=== PATIENT | female | born 1940 | race Caucasian/White ===

== ENCOUNTER → 2016-04-14 | Outpatient (CLI) | payer MEDICARE | END | disposition home or self-care (01) | LOC: NC 15:41 | PROVIDERS: ATTEND Family Medicine | DX: E11.9 Type 2 diabetes mellitus without complications (principal) ==

== ENCOUNTER → 2016-07-11 | Outpatient (CLI) | payer MEDICARE | END | disposition home or self-care (01) | LOC: NC 16:08 | DX: E11.9 Type 2 diabetes mellitus without complications (principal); I11.9 Hypertensive heart disease without heart failure; R30.0 Dysuria ==

== ENCOUNTER 2016-09-01 20:12 | Emergency (ER) | payer MEDICARE ==
[2016-09-01 20:32] VITALS: O2SAT 95
--- NOTE | 2016-09-01 20:58 | RAD ---
EXAM DESCRIPTION: Toes,Left CLINICAL HISTORY: 75 years ,Female possibly ran into something, or dropped something COMPARISON: None. TECHNIQUE: LEFT toes, Three view FINDINGS: No acute fractures or dislocations are identified. No osseous destructive lesions. Mild narrowing of the interphalangeal joint spaces IMPRESSION: No acute fractures are identified. If symptoms persist, followup is recommended in 7-10 days. Electronically signed by: Shana Oliveira 09/01/2016 8:57 PM CDT
--- NOTE | 2016-09-01 21:19 | ED.PDOC ---
History of Present Illness - General Chief Complaint: Lower Extremity Injury Stated Complaint: left toe injury, rash to rt calf Time Seen by Provider: 09/01/16 21:15 Source: patient, family Exam Limitations: no limitations - History of Present Illness Initial Comments: Patient presents with a painful left great toe and multiple small excoriations over her entire body as well as a large area of erythema and excoriations on the posterior right lower leg. The daughter says that the patient does not like water and they can only give her a bath about once every two weeks. Denies any insects, fleas or otherwise, in the house. No close contacts with similar symptoms. The daughter is unsure when the patient stubbed her left great toe. No other complaints. Timing/Duration: unsure Severity: moderate Improving Factors: nothing Worsening Factors: nothing Associated Symptoms: denies symptoms Allergies/Adverse Reactions: Allergies NO KNOWN ALLERGY Allergy (Verified 07/25/15 16:33) Home Medications: Ambulatory Orders Aspirin (Enteric Coated) 81 mg PO DAILY 07/06/12 Glipizide 10 mg PO BID 07/06/12 Lisinopril 40 mg PO BID 07/06/12 Pravastatin Sodium [Pravachol] 40 mg PO DAILY 07/06/12 Meloxicam 7.5 mg PO BEDTIME 08/23/13 Hydrochlorothiazide 25 mg PO DAILY 10/26/13 amLODIPine BESYLATE [Norvasc] 5 mg PO DAILY 10/26/13 Zolpidem Tartrate [Ambien] 5 mg PO BEDTIME 07/25/15 Cephalexin Monohydrate [Keflex] 500 mg PO Q6HR #60 cap 09/01/16 Fluconazole [Diflucan] 100 mg PO BEDTIME 09/01/16 Metformin HCl 1,000 mg PO BID 09/01/16 Nystatin (Topical) [Nystatin] 100,000 unit EX PRN 09/01/16 Quetiapine Fumarate [Seroquel Xr] 100 mg PO BEDTIME 09/01/16 Review of Systems - Review of Systems Constitutional: States: no symptoms reported EENTM: States: no symptoms reported Respiratory: States: no symptoms reported Cardiology: States: no symptoms reported Gastrointestinal/Abdominal: States: no symptoms reported Genitourinary: States: no symptoms reported Musculoskeletal: States: no symptoms reported Skin: States: see HPI Neurological: States: no symptoms reported Endocrine: States: no symptoms reported Hematologic/Lymphatic: States: no symptoms reported Past Medical History (General) - Patient Medical History Hx Seizures: No Hx Stroke: No Hx Dementia: Yes Hx Asthma: Yes Hx of COPD: No Hx Cardiac Disorders: No Hx Congestive Heart Failure: No Hx Pacemaker: No Hx Hypertension: Yes Hx Thyroid Disease: No Hx Diabetes: Yes Hx Gastroesophageal Reflux: Yes Hx Renal Disease: No Hx Cancer: No Hx Hepatitis C: No Hx MRSA: No Surgical History: Hysterectomy - Vaccination History Hx Tetanus, Diphtheria Vaccination: No Hx Influenza Vaccination: Yes Hx Pneumococcal Vaccination: Yes - Social History Hx Tobacco Use: Yes Hx Chewing Tobacco Use: No Hx Alcohol Use: No Hx Substance Use: No Hx Substance Use Treatment: No Hx Depression: No Hx Physical Abuse: No Hx Emotional Abuse: No Hx Suspected Abuse: No - Female History Patient : No Family Medical History - Family History Mother Family History: No Known Living Status: Brother Living Status: Still Living Hx Family Diabetes: Yes Sister Living Status: Still Living Hx Family Diabetes: Yes Physical Exam - Physical Exam General Appearance: Alert Respiratory: lungs clear Cardiovascular/Chest: regular rate, rhythm Gastrointestinal/Abdominal: normal bowel sounds, non tender, soft Extremity: other - left great toe is mildly tender over the toenail. There is yellow thick exudate under the toenail. Skin Exam: rash - diffuse areas of excoriations with large patch of erythema and excoriations on the posterior lower right leg. It is non-blanching and warm. Progress - Progress Progress: 09/01/16 21:21 Radiographs of the left foot show no fractures. The rashes and excorations behind the right lower leg appear to be becoming infected. Will treat with keflex and refer to podiatry for further evaluation and treatment of the left great toenail. 09/01/16 21:47 Patient given Keflex 500 mg po x one in the ER and provided with contact information for podiatry for treatment of the left great toenail. Departure - Departure Clinical Impression: Infected open wound Disposition: Discharge to Home or Self Care Condition: Good Departure Forms: ED Discharge - Pt. Copy, Patient Portal Self Enrollment Diet: resume usual diet Activity: increase activity as tolerated Referrals: Carola Delacruz NP [Primary Care Provider] - 1-2 Weeks Prescriptions: Cephalexin Monohydrate [Keflex] 500 mg PO Q6HR #60 cap Home Medications: Ambulatory Orders Aspirin (Enteric Coated) 81 mg PO DAILY 07/06/12 Glipizide 10 mg PO BID 07/06/12 Lisinopril 40 mg PO BID 07/06/12 Pravastatin Sodium [Pravachol] 40 mg PO DAILY 07/06/12 Meloxicam 7.5 mg PO BEDTIME 08/23/13 Hydrochlorothiazide 25 mg PO DAILY 10/26/13 amLODIPine BESYLATE [Norvasc] 5 mg PO DAILY 10/26/13 Zolpidem Tartrate [Ambien] 5 mg PO BEDTIME 07/25/15 Cephalexin Monohydrate [Keflex] 500 mg PO Q6HR #60 cap 09/01/16 Fluconazole [Diflucan] 100 mg PO BEDTIME 09/01/16 Metformin HCl 1,000 mg PO BID 09/01/16 Nystatin (Topical) [Nystatin] 100,000 unit EX PRN 09/01/16 Quetiapine Fumarate [Seroquel Xr] 100 mg PO BEDTIME 09/01/16 Additional Instructions: Take medication as prescribed. Call facilities manager in the morning and get the soonest possible appointment regarding the left big toe nail.
[2016-09-01] MEDS ORDERED: CEPHALEXIN MONOHYDRATE 500 MG CAP PO ONE (21:45)
[2016-09-01 22:08] VITALS: BP 132/78; TEMP 98
== END 2016-09-01 22:08 | disposition home or self-care (01) ==
LOC: ER 20:12
DX: L08.9 Local infection of the skin and subcutaneous tissue, unspecified (principal); J45.909 Unspecified asthma, uncomplicated; F03.90 Unspecified dementia, unspecified severity, without behavioral disturbance, psychotic disturbance, mood disturbance, and anxiety; I10 Essential (primary) hypertension; E11.9 Type 2 diabetes mellitus without complications; K21.9 Gastro-esophageal reflux disease without esophagitis; Z79.82 Long term (current) use of aspirin; Z79.899 Other long term (current) drug therapy; Z87.891 Personal history of nicotine dependence

== ENCOUNTER 2016-09-29 10:49 | Emergency (ER) | payer MEDICARE ==
--- NOTE | 2016-09-29 11:06 | ED.PDOC ---
History of Present Illness - General Chief Complaint: Trauma Stated Complaint: fall Time Seen by Provider: 09/29/16 11:00 Source: patient, EMS notes reviewed Exam Limitations: no limitations - History of Present Illness Initial Comments: Mildred Coffman 76 y/o female stated as she was going to her bed last night she slipped and fell and unable to get up from the floor family members living nearby visted her this am and found her laying down the floor.Called up ems .She was found to be awake and talking on ems arrival.Stated pain on her buttocks.She has dementia also taking ambien and seroquel at hs Timing/Duration: other - 12 hours Severity: moderate Improving Factors: rest Worsening Factors: movement Associated Symptoms: denies symptoms Allergies/Adverse Reactions: Allergies NO KNOWN ALLERGY Allergy (Verified 07/25/15 16:33) Home Medications: Ambulatory Orders Aspirin (Enteric Coated) 81 mg PO DAILY 07/06/12 Glipizide 10 mg PO BID 07/06/12 Lisinopril 40 mg PO BID 07/06/12 Pravastatin Sodium [Pravachol] 40 mg PO DAILY 07/06/12 Meloxicam 7.5 mg PO BEDTIME 08/23/13 Hydrochlorothiazide 25 mg PO DAILY 10/26/13 amLODIPine BESYLATE [Norvasc] 5 mg PO DAILY 10/26/13 Zolpidem Tartrate [Ambien] 5 mg PO BEDTIME 07/25/15 Fluconazole [Diflucan] 100 mg PO BEDTIME 09/01/16 Metformin HCl 1,000 mg PO BID 09/01/16 Nystatin (Topical) [Nystatin] 100,000 unit EX PRN 09/01/16 Quetiapine Fumarate [Seroquel Xr] 100 mg PO BEDTIME 09/01/16 Review of Systems - Review of Systems Constitutional: States: no symptoms reported EENTM: States: no symptoms reported Respiratory: States: no symptoms reported Cardiology: States: no symptoms reported Gastrointestinal/Abdominal: States: no symptoms reported Genitourinary: States: no symptoms reported Musculoskeletal: States: see HPI Skin: States: no symptoms reported Neurological: States: no symptoms reported Hematologic/Lymphatic: States: no symptoms reported Past Medical History (General) - Patient Medical History Hx Seizures: No Hx Stroke: No Hx Dementia: Yes Hx Asthma: Yes Hx of COPD: No Hx Cardiac Disorders: No Hx Congestive Heart Failure: No Hx Pacemaker: No Hx Hypertension: Yes Hx Thyroid Disease: No Hx Diabetes: Yes Hx Gastroesophageal Reflux: Yes Hx Renal Disease: No Hx Cancer: No Hx Hepatitis C: No Hx MRSA: No Surgical History: no surgical history - Vaccination History Hx Tetanus, Diphtheria Vaccination: No Hx Influenza Vaccination: Yes Hx Pneumococcal Vaccination: Yes - Social History Hx Tobacco Use: Yes Hx Chewing Tobacco Use: No Hx Alcohol Use: No Hx Substance Use: No Hx Substance Use Treatment: No Hx Depression: No Hx Physical Abuse: No Hx Emotional Abuse: No Hx Suspected Abuse: No - Activities of Daily Living Patient Lives Alone: No - family members lives across to her house daughter stays with her but on vac Grooming Ability: Independent Eating (Feeding) Ability: Independent Toileting Ability: Independent - Female History Patient is a Female of Child Bearing Age (10 -59 yrs old): No Patient : No Family Medical History - Family History Mother Family History: No Known Living Status: Brother Living Status: Still Living Hx Family Diabetes: Yes Sister Living Status: Still Living Hx Family Diabetes: Yes Physical Exam - Physical Exam General Appearance: Alert, Comfortable, No apparent distress Eye Exam: bilateral normal Ears, Nose, Throat: hearing grossly normal Neck: non-tender, full range of motion, supple Respiratory: chest non-tender, lungs clear, normal breath sounds Cardiovascular/Chest: normal peripheral pulses, regular rate, rhythm, no gallop , no murmur Peripheral Pulses: radial,right: 1+, radial,left: 1+ Gastrointestinal/Abdominal: normal bowel sounds, non tender, soft, no organomegaly Back Exam: normal inspection, no CVA tenderness, no vertebral tenderness Extremity: normal range of motion, non-tender, normal inspection, no pedal edema , no calf tenderness Neurologic: no motor/sensory deficits, alert, normal mood/affect, oriented x 3, other - pronator drift negative Skin Exam: normal color, warm/dry, rash - both legs Lymphatic: no adenopathy Progress - Progress Progress: 09/29/16 12:19 Vital Signs - 8 hr 09/29/16 10:52 Temperature 97.6 F Pulse Rate [ 82 left brachial] Respiratory 16 Rate Blood Pressure 132/77 [left brachial] O2 Sat by Pulse 96 Oximetry Laboratory Tests 09/29/16 09/29/16 11:28 11:55 WBC 6.6 RBC 3.92 L Hgb 11.1 L Hct 34.3 L MCV 87.6 MCH 28.3 MCHC 32.3 L RDW 13.9 Plt Count 168 MPV 10.6 H Absolute Neuts (auto) 3.70 Absolute Lymphs (auto) 1.80 Absolute Monos (auto) 0.50 Absolute Eos (auto) 0.40 Absolute Basos (auto) 0.10 Neutrophils % 56.9 Lymphocytes % 27.5 Monocytes % 8.1 Eosinophils % 6.3 H Basophils % 1.2 PT 11.2 INR 0.990 PTT (SP) 28.2 Sodium 143 Potassium 3.4 L Chloride 110 Carbon Dioxide 26 Anion Gap 10.4 L BUN 18 Creatinine 1.01 BUN/Creatinine Ratio 17.8 Random Glucose 91 Serum Osmolality 286.5 Calcium 8.9 Magnesium 1.7 L Total Bilirubin 0.4 Direct Bilirubin < 0.1 Indirect Bilirubin 0.3 AST 18 ALT 17 Alkaline Phosphatase 80 Creatine Kinase 56 Troponin I < 0.02 Serum Total Protein 7.2 Albumin 3.2 Urine Color Yellow Urine Appearance Clear Urine pH 5.5 Ur Specific [place] 1.020 Urine Protein Negative Urine Glucose (UA) Negative Urine Ketones Negative Urine Blood Negative Urine Nitrite Negative Urine Bilirubin Negative Urine Urobilinogen 0.2 Ur Leukocyte Esterase Negative Urine RBC 0-1 Urine WBC 0-1 Ur Epithelial Cells 20-30 Urine Bacteria 0 - EKG/XRAY/CT EKG: Sinus, no ST T wave changes Comments: heart rate-73 XRAY: hip - no fracture degenerative changes Departure - Departure Clinical Impression: Pain in pelvis Fall at home Qualifiers: Encounter type: initial encounter Qualified Code(s): W19.XXXA - Unspecified fall, initial encounter Time of Disposition: 12:25 Disposition: Discharge to Home or Self Care Condition: Fair Departure Forms: ED Discharge - Pt. Copy, Patient Portal Self Enrollment Instructions: How to Prevent Falls Referrals: Carola Delacruz NP [Primary Care Provider] - 1-2 Weeks Home Medications: Ambulatory Orders Aspirin (Enteric Coated) 81 mg PO DAILY 07/06/12 Glipizide 10 mg PO BID 07/06/12 Lisinopril 40 mg PO BID 07/06/12 Pravastatin Sodium [Pravachol] 40 mg PO DAILY 07/06/12 Meloxicam 7.5 mg PO BEDTIME 08/23/13 Hydrochlorothiazide 25 mg PO DAILY 10/26/13 amLODIPine BESYLATE [Norvasc] 5 mg PO DAILY 10/26/13 Zolpidem Tartrate [Ambien] 5 mg PO BEDTIME 07/25/15 Fluconazole [Diflucan] 100 mg PO BEDTIME 09/01/16 Metformin HCl 1,000 mg PO BID 09/01/16 Nystatin (Topical) [Nystatin] 100,000 unit EX PRN 09/01/16 Quetiapine Fumarate [Seroquel Xr] 100 mg PO BEDTIME 09/01/16 Additional Instructions: Follow up with primary md for evaluation of sleeping medicne due to frequent falling at home
[2016-09-29] MEDS: SODIUM CHLORIDE 0.9% 1000ML 1,000 ML IVS ONE (11:19)
[2016-09-29 11:28] VITALS: TEMP 97.6
--- NOTE | 2016-09-29 11:41 | RAD ---
Frontal view pelvis. Two-view right hip. Two-view left hip. Indication: fall Comparison: None. IMPRESSION: Examination limited due to poor penetration related to body habitus as well as osteopenia. Given this limitation, no discrete acute fracture of the hips or pelvis identified. If there is high clinical concern for fracture, correlation with MRI or CT recommended. 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 Electronically signed by: Dandre Ramon MD 09/29/2016 11:40 AM CDT
[2016-09-29 12:57] VITALS: BP 111/74; O2SAT 96
== END 2016-09-29 12:57 | disposition home or self-care (01) ==
LOC: ER 10:49
DX: R10.2 Pelvic and perineal pain (principal); J45.909 Unspecified asthma, uncomplicated; I10 Essential (primary) hypertension; E11.9 Type 2 diabetes mellitus without complications; K21.9 Gastro-esophageal reflux disease without esophagitis; F03.90 Unspecified dementia, unspecified severity, without behavioral disturbance, psychotic disturbance, mood disturbance, and anxiety; Z79.82 Long term (current) use of aspirin; Z79.899 Other long term (current) drug therapy; Z87.891 Personal history of nicotine dependence; W01.0XXA Fall on same level from slipping, tripping and stumbling without subsequent striking against object, initial encounter; Z91.81 History of falling; Y92.003 Bedroom of unspecified non-institutional (private) residence as the place of occurrence of the external cause
CPT/HCPCS: 36415; 72190; 73502; 80048; 80076; 81001; 82550; 82553; 84484; 85025; 85610; 85730; 93005; J7030

== ENCOUNTER → 2017-01-27 | Outpatient (CLI) | payer MEDICARE | END | disposition home or self-care (01) | LOC: NC 17:25 | DX: E11.22 Type 2 diabetes mellitus with diabetic chronic kidney disease (principal); I12.9 Hypertensive chronic kidney disease with stage 1 through stage 4 chronic kidney disease, or unspecified chronic kidney disease; N18.9 Chronic kidney disease, unspecified; R30.0 Dysuria ==

== ENCOUNTER 2017-03-27 16:29 | Inpatient (IN) | payer MEDICARE ==
[2017-03-27] MEDS ORDERED: SODIUM CHLORIDE 0.9% 500ML 500 ML IVS ONE (16:51)
--- NOTE | 2017-03-27 16:54 | ED.PDOC ---
History of Present Illness - General Chief Complaint: Trauma Stated Complaint: fall, leg pain Time Seen by Provider: 03/27/17 16:49 Source: RN notes reviewed, Vital Signs reviewed, other - Home Health Exam Limitations: clinical condition - pt has confusion - History of Present Illness Timing/Duration: other - two days, found on floor by family in morning, no weight-bearing on L leg Improving Factors: immobilization Worsening Factors: movement Associated Symptoms: cough, weakness Allergies/Adverse Reactions: Allergies NO KNOWN ALLERGY Allergy (Verified 03/27/17 16:44) Home Medications: Ambulatory Orders Aspirin (Enteric Coated) 81 mg PO DAILY 07/06/12 Glipizide 10 mg PO BID 07/06/12 Lisinopril 40 mg PO BID 07/06/12 Pravastatin Sodium [Pravachol] 40 mg PO DAILY 07/06/12 Meloxicam 7.5 mg PO BEDTIME 08/23/13 Hydrochlorothiazide 25 mg PO DAILY 10/26/13 amLODIPine BESYLATE [Norvasc] 5 mg PO DAILY 10/26/13 Zolpidem Tartrate [Ambien] 5 mg PO BEDTIME 07/25/15 Fluconazole [Diflucan] 100 mg PO BEDTIME 09/01/16 Metformin HCl 1,000 mg PO BID 09/01/16 Nystatin (Topical) [Nystatin] 100,000 unit EX PRN 09/01/16 Quetiapine Fumarate [Seroquel Xr] 100 mg PO BEDTIME 09/01/16 Review of Systems - Review of Systems Unable to Obtain Due To: dementia Past Medical History (General) - Patient Medical History Hx Seizures: No Hx Stroke: No Hx Dementia: Yes Hx Asthma: Yes Hx of COPD: No Hx Cardiac Disorders: No Hx Congestive Heart Failure: No Hx Pacemaker: No Hx Hypertension: Yes Hx Thyroid Disease: No Hx Diabetes: Yes Hx Gastroesophageal Reflux: Yes Hx Renal Disease: No Hx Cancer: No Hx Hepatitis C: No Hx MRSA: No - Vaccination History Hx Tetanus, Diphtheria Vaccination: No Hx Influenza Vaccination: Yes Hx Pneumococcal Vaccination: Yes - Social History Hx Tobacco Use: Yes Hx Chewing Tobacco Use: No Hx Alcohol Use: No Hx Substance Use: No Hx Substance Use Treatment: No Hx Depression: No Hx Physical Abuse: No Hx Emotional Abuse: No Hx Suspected Abuse: No - Female History Patient : No Family Medical History - Family History Mother Family History: No Known Living Status: Brother Living Status: Still Living Hx Family Diabetes: Yes Sister Living Status: Still Living Hx Family Diabetes: Yes Physical Exam - Physical Exam General Appearance: Alert, Obvious distress - wih L leg movement Eye Exam: bilateral normal Ears, Nose, Throat: hearing grossly normal, other - oral mucosa slightly dry Neck: non-tender Respiratory: lungs clear, normal breath sounds, no respiratory distress Cardiovascular/Chest: regular rate, rhythm, no edema Peripheral Pulses: dorsalis pedis,right: 0, dorsalis pedis,left: 0, posterior tibialis,right: 0, posterior tibialis,left: 0 Gastrointestinal/Abdominal: normal bowel sounds, soft, tenderness - mild, diffuse Neurologic: alert, disoriented x 3 Skin Exam: warm/dry, other - L foot slightly cool to touch, no cyanosis or edema Departure - Departure Clinical Impression: Weakness UTI (urinary tract infection) Qualifiers: Urinary tract infection type: acute cystitis Hematuria presence: without hematuria Qualified Code(s): N30.00 - Acute cystitis without hematuria Dementia Qualifiers: Dementia type: unspecified type Contusion, hip and thigh Qualifiers: Laterality: left Disposition: Admit Patient Departure Forms: ED Discharge - Pt. Copy, Patient Portal Self Enrollment Instructions: DI for Trauma Referrals: Carola Delacruz NP [Nurse Practitioner] - 1-2 Weeks Home Medications: Ambulatory Orders Aspirin (Enteric Coated) 81 mg PO DAILY 07/06/12 Glipizide 10 mg PO BID 07/06/12 Lisinopril 40 mg PO BID 07/06/12 Pravastatin Sodium [Pravachol] 40 mg PO DAILY 07/06/12 Meloxicam 7.5 mg PO BEDTIME 08/23/13 Hydrochlorothiazide 25 mg PO DAILY 10/26/13 amLODIPine BESYLATE [Norvasc] 5 mg PO DAILY 10/26/13 Zolpidem Tartrate [Ambien] 5 mg PO BEDTIME 07/25/15 Fluconazole [Diflucan] 100 mg PO BEDTIME 09/01/16 Metformin HCl 1,000 mg PO BID 09/01/16 Nystatin (Topical) [Nystatin] 100,000 unit EX PRN 09/01/16 Quetiapine Fumarate [Seroquel Xr] 100 mg PO BEDTIME 09/01/16 Decision To Admit - Decistion To Admit Decision to Admit Reason: Medical Nature - weakness from UTI and risk of falling Decision to Admit Date: 03/27/17
--- NOTE | 2017-03-27 18:03 | RAD ---
EXAM DESCRIPTION: Chest,1 View CLINICAL HISTORY: 76 years Female, cough, weakness COMPARISON: March 16, 2014 TECHNIQUE: AP portable chest. FINDINGS: A single view of the chest is compared to remote prior study. On the right no specific abnormality is noted. On the left there is a questionable 1 cm nodule in the suprahilar region overlying the anterior left second rib. When able a standard departmental PA and lateral upright view of the chest is recommended for reevaluation prior to any further workup. Heart size is borderline enlarged with a calcified tortuous aorta. No hilar enlargement or dense consolidation or definite acute infiltrate noted. IMPRESSION: 1. Questionable small nodule left upper lung field, approximately 1 cm in diameter. Follow-up standard departmental upright deep inspiration PA and lateral view of the chest for initial further evaluation recommended. A small pulmonary lesion cannot be completely excluded. 2. No acute consolidation or inflammatory process is seen. Electronically signed by: Ramiro Lynn MD 03/27/2017 6:03 PM HEMODIALYSIS TECHNICIAN
--- NOTE | 2017-03-27 18:04 | RAD ---
EXAM DESCRIPTION: Knee,Left 2 or More Views CLINICAL HISTORY: 76 years, Female, pain after fall COMPARISON: None TECHNIQUE: Two views of the left knee FINDINGS: Advanced degenerative changes involving the left knee with modest osteopenia is present without significant joint effusion. Changes are most significant in the medial joint compartment with joint space narrowing and mild sclerosis. Milder patellofemoral and lateral compartment arthritic changes noted. No fractures or dislocations noted. IMPRESSION: 1. Moderate degenerative joint disease particularly in the medial joint compartment. No acute injury seen Electronically signed by: Ramiro Lynn MD 03/27/2017 6:04 PM [facility]
--- NOTE | 2017-03-27 18:06 | RAD ---
EXAM DESCRIPTION: Pelvis CLINICAL HISTORY: 76 years Female, L hip pain COMPARISON: September 29, 2016 FINDINGS: Bony pelvis is intact. A distinct abnormality involving the left side of the pelvis on the left hip on this single view is not apparent. No obvious fracture or dislocation is seen. No soft tissue masses noted. IMPRESSION: Negative pelvis one view with mild degenerative changes. Electronically signed by: Ramiro Lynn MD 03/27/2017 6:[address] REPORTER
[2017-03-27] MEDS ORDERED: cefTRIAXone SODIUM 1 GM in SODIUM CHL 0.9% 50ML MIN-BAG+ 50 ML IVPB ONE (18:19)
[2017-03-27] MEDS ORDERED: cefTRIAXone SODIUM 1 GM VIAL ONE (18:40)
[2017-03-27] MEDS ORDERED: SODIUM CHL 0.9% 50ML MIN-BAG+ 50 ML IVPB ONE (18:40)
--- NOTE | 2017-03-27 20:24 | HP ---
SUPERVISING PHYSICIAN: HEMA CHAPPELL MD CHIEF COMPLAINT: Fall and altered mental status. HISTORY OF PRESENT ILLNESS: This is a 76 year-old female patient who has had 4+ days of weakness and she has stumbled several times at home. She lives with her granddaughter and her . Her home health nurse from [facility] was there today and she stumbled onto the floor and would not move her left side. She was brought to the Emergency Room due to her confusional state as well as she was unable to walk. She has also had several days of congestion, she goes to Audrey Smith NP, at [facility] and was recently treated for a urinary tract infection that her cultures showed Escherichia Coli and was hall-sensitive to antibiotics. She completed a round of Macrobid and has just recently finished it and according to the granddaughter within a day or so after completion of the Macrobid she was having increasing confusion with altered mentation and became very weak. In the Emergency Room, a left pelvic x-ray was done and per radiology interpretation shows negative pelvis, one-view, with mild degenerative changes. A left knee x-ray was also obtained and per radiology interpretation shows moderate degenerative joint disease particularly in the medial joint compartment , no acute injury seen. Laboratory studies reveal WBC of 8.1 with hemoglobin of 12 and hematocrit of 36.4. Neutrophil was 73.3. Chemistries show sodium of 137, potassium 3.2, chloride 102, carbon dioxide 25, BUN 35, creatinine 1.51 in a patient whose baseline creatinine is 0.8. Blood sugar was 267, AST 66, ALT 37, alkaline phosphatase 86, albumin 2.8, and globulin 4.4. Urinalysis was positive for a urinary tract infection with 15 urine ketones, moderate urine blood, small urine bilirubin, small urine leukocyte esterase, 20 to 30 urine WBCs and 4+ urine bacteria. Urine cultures were completed. She also has had complaints of a subjective fever, her temperature was 99.4 in the Emergency Room and her influenza swabs A&B by PCR were both negative. Vital signs showed her heart rate was as high as 101 with a blood pressure of 106/71, respiratory rate 20, 02 saturation 95% on room air. I was called for admission to the hospital. PAST MEDICAL HISTORY: 1. History of diabetes mellitus type 2. 2. Hypertension. 3. Hyperlipidemia. 4. Chronic dementia. 5. History of TIAs. 6. Chronic headaches. PAST SURGICAL HISTORY: 1. Hysterectomy with bilateral oophorectomy. 2. Gallbladder surgery. CURRENT MEDICATIONS: Per the EMR and awaiting verification. ALLERGIES: NO KNOWN DRUG ALLERGIES. FAMILY HISTORY: Positive for cancer, diabetes and high blood pressure. SOCIAL HISTORY: She smokes in the past but quit 20+ years ago. She lives with her granddaughter and her . She denies any ETOH or illicit drug use. REVIEW OF SYSTEMS: Unable to obtain due to patient's reduced mentation. PHYSICAL EXAMINATION: VITAL SIGNS: Temperature 98.7, pulse rate 90, blood pressure 140/76, respiratory rate 20, 02 saturation 95%. GENERAL: This is a 76 year-old obese female lying her hospital bed. She is in no acute distress. HEENT: Normocephalic and atraumatic. Pupils are equal and reactive. Oropharynx is clear. Oral mucous membranes are moist. RESPIRATORY: Essentially clear bilaterally. Chest has equal rise and fall in inspiration and expiration. CARDIOVASCULAR: Regular rate and rhythm. GASTROINTESTINAL: Abdomen is soft, non-tender and nondistended. Bowel sounds are positive. EXTREMITIES: No cyanosis, clubbing, or edema. There is some tenderness along the lateral portion of her left hip and left knee. There is no ecchymosis or erythema noted at this time. NEUROLOGICAL: She is awake and alert to person only, answers some simple yes and no questions appropriately. LABORATORY AND FILMS: As per the history of present illness. IMPRESSION: 1. Urinary tract infection, failed outpatient therapy. She was recently treated for a urinary tract infection with Macrobid with culture and sensitivity showing that Escherichia Coli with hall-sensitivity. 2. Acute renal failure in a patient with a normal creatinine of 0.8. 3. Mild upper respiratory illness with some mild congestion. 4. Altered mental status most likely secondary to #1. 5. Weakness. 6. Traumatic same level fall initially with no weightbearing and confusion. 7. Diabetes mellitus type 2. 8. Hypertension. 9. History of TIAs. PLAN: We will admit the patient to the hospital. I have continued her Ceftriaxone for her antibiotic therapy. I have added Mucinex for her congestion. Accu-Chek a.c. and h.s. with body scales for her diabetes. I have not restarted her home medications and I will do so as soon as they are verified. I will consult physical therapy for strengthening and conditioning. Given the recent history of her weakness as well as several falls, it may be beneficial for her to go SNF at discharge with physical therapy. Repeat labs in the morning. I will give a judicious amount of fluids to help with the knee injury. We will continue to follow the patient closely and followup as needed. Dr. Chappell is the collaborating physician and available for consultation. [facility][id number] [facility]
[2017-03-27] MEDS ORDERED: DEXTROSE 50% 25 GM/50 ML SYG IV PRN (21:27)
[2017-03-27] MEDS ORDERED: GLUCAGON INJ 1 MG VIAL SUBCU PRN (21:27)
[2017-03-27] MEDS ORDERED: cefTRIAXone SODIUM 1 GM in SODIUM CHL 0.9% 50ML MIN-BAG+ 50 ML IVPB SCH (21:30)
[2017-03-27] MEDS ORDERED: IV SET AND CAP CHANGE INJ INJ SCH (21:30)
[2017-03-27] MEDS ORDERED: PANTOPRAZOLE SODIUM IV 40 MG VIAL IV SCH (21:30)
[2017-03-27] MEDS ORDERED: ENOXAPARIN SODIUM 40 MG/0.4 ML SYG SUBCU SCH (21:30)
[2017-03-27] MEDS: guaiFENesin ER TAB 600 MG TAB PO SCH (22:47)
[2017-03-28] MEDS ORDERED: cefTRIAXone SODIUM 1 GM VIAL ONE ×2 (05:36→17:21)
[2017-03-28] MEDS ORDERED: SODIUM CHL 0.9% 50ML MIN-BAG+ 50 ML IVPB ONE ×2 (05:36→17:21)
[2017-03-28] MEDS: cefTRIAXone SODIUM 1 GM in SODIUM CHL 0.9% 50ML MIN-BAG+ 50 ML IVPB SCH ×2 (05:54→18:31)
[2017-03-28] MEDS: INSULIN LISPRO 100 UNITS/ML PEN SUBCU SCH ×4 (07:21→22:43)
[2017-03-28] MEDS: metFORMIN HCL 500 MG TAB PO SCH ×2 (10:40→17:36)
[2017-03-28] MEDS: amLODIPine BESYLATE 5 MG TAB PO SCH (10:40)
[2017-03-28] MEDS: LISINOPRIL 10 MG TAB PO SCH ×2 (10:40→21:18)
[2017-03-28] MEDS: guaiFENesin ER TAB 600 MG TAB PO SCH ×2 (10:40→21:17)
[2017-03-28] MEDS: hydroCHLOROthiazide 25 MG TAB PO SCH (10:40)
[2017-03-28] MEDS: metFORMIN XR 500 MG TAB.ER.24 PO SCH (17:20)
--- NOTE | 2017-03-28 17:35 | PN ---
DATE: 03/28/17 SUPERVISING PHYSICIAN: Demond Chappell M.D. SUBJECTIVE: The patient is resting in the bedside chair. She has no major complaints. Says she still feels weak and tired. She has had no shortness of breath, nausea or vomiting. OBJECTIVE: VITAL SIGNS: Temperature 96.8, pulse 94, blood pressure 122/76, respirations 18, satting 95% on room air. I's and O's are not well managed as the patient is incontinent. Weight is 105.1 kg. CHEST: Lungs were clear to auscultation bilaterally. HEART: Regular rate and rhythm. ABDOMEN: Obese but soft, non-tender with positive bowel sounds. EXTREMITIES: No clubbing, cyanosis or edema. There remains some tenderness along the left hip and left knee but no obvious ecchymotic areas. NEUROLOGIC: She is alert and awake, and is oriented times three. LABORATORY: White count remains normal at 7,300 with hemoglobin 11.3, hematocrit 34.5, platelet count 221,000. Differential shows to be without a left shift. Chemistries show just a mildly low potassium at 3.4, otherwise electrolytes are within normal limits. BUN 34, creatinine 1.31 which is improved from admission. Blood sugar is 150, magnesium 1.9. MICROBIOLOGY: Urine culture performed today shows gram-negative rods with sensitivity and identification pending. ASSESSMENT: 1. Urinary tract infection having failed to respond to outpatient treatment plan having recently been treated for Escherichia coli on Macrobid. 2. Altered mental status secondary to #1 showing some improvement with treatment. 3. Acute renal failure more likely prerenal azotemia with baseline creatinine being 0.8 showing some improvement. 4. Upper respiratory congestion with normal white count and being afebrile with a negative Influenza. 5. Weakness secondary to chronic illness. 6. Traumatic same level fall with some confusion felt to be secondary to underlying weakness and possible developing urinary tract infection showing improvement with treatment. 7. Diabetes mellitus type 2. 8. Hypertension. 9. History of previous transient ischemic attacks. PLAN: Will continue with Rocephin antibiotic coverage until we have final cultures back from the urine culture in the morning. She remains on Mucinex. Her blood sugar has been stable on sliding scale. Her home medications have been resumed. 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 She continues to be saline locked and has adequate oral intake. Will continue to hold the Glipizide in regards to her medication regimen. The Metformin has been reinitiated. Will anticipate at least another 24 to 48 hours hospitalization requirement for parenteral antibiotic coverage and further physical therapy assessment, and possible referral to SNF facility on Thursday. Until then, will continue to monitor and treat appropriately. #[id number] [facility]
[2017-03-28] MEDS ORDERED: QUEtiapine FUMARATE 100 MG TAB ONE (19:44)
[2017-03-28] MEDS: ENOXAPARIN SODIUM 40 MG/0.4 ML SYG SUBCU SCH (21:17)
[2017-03-28] MEDS: PANTOPRAZOLE SODIUM IV 40 MG VIAL IV SCH (21:18)
[2017-03-28] MEDS: QUETIAPINE FUMARATE 100 MG PO SCH (21:18)
[2017-03-28] MEDS: PRAVASTATIN SODIUM 20 MG TAB PO SCH (21:18)
[2017-03-28] MEDS: SODIUM CHLORIDE 0.9% (FLUSH) 10 ML SYG IV PRN (21:19)
[2017-03-29] MEDS ORDERED: SODIUM CHL 0.9% 50ML MIN-BAG+ 50 ML IVPB ONE ×3 (05:35→19:38)
[2017-03-29] MEDS ORDERED: cefTRIAXone SODIUM 1 GM VIAL ONE ×3 (05:36→19:39)
[2017-03-29] MEDS: cefTRIAXone SODIUM 1 GM in SODIUM CHL 0.9% 50ML MIN-BAG+ 50 ML IVPB SCH ×2 (05:59→18:22)
[2017-03-29] MEDS ORDERED: cefTRIAXone SODIUM 1 GM in SODIUM CHL 0.9% 50ML MIN-BAG+ 50 ML IVPB SCH (06:30)
[2017-03-29] MEDS: metFORMIN HCL 500 MG TAB PO SCH (08:16)
[2017-03-29] MEDS: INSULIN LISPRO 100 UNITS/ML PEN SUBCU SCH ×4 (08:16→21:03)
[2017-03-29] MEDS: LISINOPRIL 10 MG TAB PO SCH (08:17)
[2017-03-29] MEDS: metFORMIN XR 500 MG TAB.ER.24 PO SCH (08:37)
[2017-03-29] MEDS: hydroCHLOROthiazide 25 MG TAB PO SCH (09:43)
[2017-03-29] MEDS: guaiFENesin ER TAB 600 MG TAB PO SCH ×2 (09:43→20:41)
[2017-03-29] MEDS: amLODIPine BESYLATE 5 MG TAB PO SCH (09:43)
[2017-03-29] MEDS: ASPIRIN EC 81 MG TAB PO SCH (09:43)
[2017-03-29] MEDS ORDERED: metFORMIN HCL 500 MG TAB PO SCH (17:00)
[2017-03-29] MEDS ORDERED: QUEtiapine FUMARATE 100 MG TAB ONE (19:38)
[2017-03-29] MEDS: ENOXAPARIN SODIUM 40 MG/0.4 ML SYG SUBCU SCH (20:41)
[2017-03-29] MEDS: PANTOPRAZOLE SODIUM IV 40 MG VIAL IV SCH (20:41)
[2017-03-29] MEDS: SODIUM CHLORIDE 0.9% (FLUSH) 10 ML SYG IV PRN (20:41)
[2017-03-29] MEDS: PRAVASTATIN SODIUM 20 MG TAB PO SCH (20:41)
[2017-03-29] MEDS: QUETIAPINE FUMARATE 100 MG PO SCH (20:42)
[2017-03-30] MEDS: cefTRIAXone SODIUM 1 GM in SODIUM CHL 0.9% 50ML MIN-BAG+ 50 ML IVPB SCH (06:07)
[2017-03-30] MEDS ORDERED: metFORMIN HCL 500 MG TAB PO SCH (07:30)
[2017-03-30] MEDS: INSULIN LISPRO 100 UNITS/ML PEN SUBCU SCH ×2 (08:02→12:46)
[2017-03-30] MEDS: guaiFENesin ER TAB 600 MG TAB PO SCH (08:32)
[2017-03-30] MEDS: ASPIRIN EC 81 MG TAB PO SCH (08:32)
[2017-03-30] MEDS: hydroCHLOROthiazide 25 MG TAB PO SCH (08:32)
[2017-03-30] MEDS: amLODIPine BESYLATE 5 MG TAB PO SCH (08:32)
--- NOTE | 2017-03-30 08:53 | PN ---
DATE: 03/29/17 SUPERVISING PHYSICIAN: Demond Chappell MD SUBJECTIVE: The patient remains with a very flat affect. She has not had any significant complaints of chest pains, worsening shortness of breath or nausea, vomiting, diarrhea. She continues to be weak and does not have much of a discussion regarding discharge planning and possibly going to a facility such as [facility]. OBJECTIVE: VITAL SIGNS: Afebrile, temperature 98.7, pulse 96, blood pressure 143/74, respirations 18, saturation 97% on room air. I&O: Not well managed due to patient being incontinent. Weight 105.0 kg. CHEST: Lungs clear to auscultation. HEART: Regular rate and rhythm. ABDOMEN : Obese but soft, non-tender, positive bowel sounds. EXTREMITIES: No cyanosis , clubbing, or edema. NEUROLOGIC: Alert and oriented with a very flat affect. No neuro or motor deficits noted. Cranial nerves II through XII are grossly intact. LABORATORY: Stable hemoglobin at 10.5, hematocrit 31.7, white count 5,900 with no left shift noted on differential. Chemistries show a mild hyponatremia with sodium 134. Potassium normalized at 3.6. BUN and creatinine remain fairly stable but elevated BUN 37, creatinine 1.57. Blood sugars remain between 94 and 126. Calcium 8.2 MICROBIOLOGY: Final urine culture showed E. coli that was sensitive to all but Nitrofurantoin with the patient again having been on Microbid prior to admission having failed to response to that outpatient treatment. ASSESSMENT: 1. Urinary tract infection with current results showing Escherichia coli which is sensitive to all but Macrobid.with the patient having failed to respond to outpatient treatment plan previously having been treated on Macrobid and apparently showing good response on Rocephin. 2. Altered mental status secondary to #1 improvement with treatment. 3. Acute renal failure although showing stable, felt to be some degree of some degree of prerenal azotemia with her baseline creatinine showing in the past to be 0.8 possibly showing some worsening with current medications, on home medications prior to admission with both metformin, glyburide and high dose lisinopril. 4. Upper respiratory congestion with normal white count and being afebrile with a negative Influenza. 5. Weakness secondary to chronic illness. 6. Traumatic same level fall with some confusion felt to be secondary to underlying weakness and possible developing urinary tract infection as noted in #1, improved with treatment. 7. Diabetes mellitus type 2, stable. 8. Hypertension, stable. 9. History of previous transient ischemic attacks. PLAN: Will continue with antibiotic coverage of Rocephin based off current results. She will benefit from at least another 24 hours with coverage with antibiotics. 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 Hopefully, anticipate discharge tomorrow once arrangements can be secured for safe discharge. Until then, we will continue to monitor and treat appropriately. #[id number] [facility]
[2017-03-30] MEDS ORDERED: LISINOPRIL 10 MG TAB PO SCH (09:00)
[2017-03-30] MEDS ORDERED: traMADol HCL 50 MG TAB PO ONE (10:12)
[2017-03-30] MEDS ORDERED: traMADol HCL 50 MG TAB ONE (10:15)
[2017-03-30] MEDS ORDERED: PANTOPRAZOLE SODIUM TAB 40 MG PO SCH (11:30)
[2017-03-30 12:55] VITALS: BP 120/77; TEMP 97.5
[2017-03-30 15:28] VITALS: O2SAT 92
[2017-03-30] MEDS ORDERED: SODIUM CHLORIDE 0.9% (FLUSH) 10 ML SYG IV SCH (21:00)
--- NOTE | 2017-03-31 08:13 | DS ---
SUPERVISING PHYSICIAN: Ramiro Ocampo MD ADMISSION DIAGNOSIS: 1. Urinary tract infection, failed outpatient therapy. 2. Acute renal failure. 3. Upper respiratory infection. 4. Altered mental status. 5. Weakness. 6. Traumatic same level fall. 7. Diabetes mellitus, type 2. 8. Hypertension. 9. History of transient ischemic attacks. DISCHARGE DIAGNOSIS: 1. Escherichia coli urinary tract infection resistant to Macrobid. 2. Acute renal failure, improved. 3. Upper respiratory infection, improved. 4. Altered mental status, improved. 5. Weakness. 6. Traumatic same level fall. 7. Diabetes mellitus, type 2. 8. Hypertension. 9. History of transient ischemic attacks. HOSPITAL COURSE: This is a 76-year-old female who came in with about a four day complaint of weakness and falls at home. She does have home health at home and they noted she had stumbled to the floor. She was brought to the Emergency Room and noted to have altered mental status and unable to walk. She was noted also to still have a urinary tract infection which was being treated with Macrobid, however, evidence showed the urinary tract infection was pansensitive to everything except for Macrobid. Throughout the patient's mentation did improve a bit. She does have a flat affect and appears to probably have a fair degree of dementia, although it should be noted that her chemistry and CBC did improve over the course of admission. On date of discharge, the patient had been evaluated for [facility] and was accepted. Therefore, she is being discharged in stable condition on p.o. antibiotics for her urinary tract infection to [facility]. DISCHARGE MEDICATIONS: 1. Ceftin 500 mg twice a day for 7 days. 2. Lisinopril is being changed to 20 mg p.o. daily from the 40 mg p.o. b.i.d. that it was. 3. I have also ordered p.r.n. pain medication, Tramadol 50 mg p.o. b.i.d. as needed for pain. DISCHARGE CONDITION: Fair. DISCHARGE DIET: Resume previous diet. ACTIVITY: As tolerated and as per instruction by alf staff utilizing he walker. DISCHARGE PLAN: Followup with primary care provider in one to two weeks. #[id number] [facility]
== END 2017-03-30 16:43 | DRG 690 ==
LOC: ER 16:29 → MS 20:20 → OBSVTOIN 20:20
PROVIDERS: ADMIT Nurse Practitioner Acute Care; ATTEND Nurse Practitioner
DX: N39.0 Urinary tract infection, site not specified (principal); N17.9 Acute kidney failure, unspecified; J06.9 Acute upper respiratory infection, unspecified; E86.0 Dehydration; E11.9 Type 2 diabetes mellitus without complications; I10 Essential (primary) hypertension; B96.20 Unspecified Escherichia coli [E. coli] as the cause of diseases classified elsewhere; M17.12 Unilateral primary osteoarthritis, left knee; E78.5 Hyperlipidemia, unspecified; F03.90 Unspecified dementia, unspecified severity, without behavioral disturbance, psychotic disturbance, mood disturbance, and anxiety; R51 Headache; J45.909 Unspecified asthma, uncomplicated; K21.9 Gastro-esophageal reflux disease without esophagitis; R32 Unspecified urinary incontinence; S70.02XA Contusion of left hip, initial encounter; W19.XXXA Unspecified fall, initial encounter; Z16.20 Resistance to unspecified antibiotic; E66.9 Obesity, unspecified; Z79.82 Long term (current) use of aspirin; Z86.73 Personal history of transient ischemic attack (TIA), and cerebral infarction without residual deficits; Z87.891 Personal history of nicotine dependence; Z79.1 Long term (current) use of non-steroidal anti-inflammatories (NSAID); Z79.84 Long term (current) use of oral hypoglycemic drugs; Y92.009 Unspecified place in unspecified non-institutional (private) residence as the place of occurrence of the external cause

== ENCOUNTER 2017-04-14 00:17 | Emergency (ER) | payer MEDICARE ==
[2017-04-14 00:36] VITALS: BP 158/78; TEMP 99.2; O2SAT 98
--- NOTE | 2017-04-14 00:41 | ED.PDOC ---
History of Present Illness - General Chief Complaint: Trauma Stated Complaint: Fall, left hip pain, head pain Time Seen by Provider: 04/14/17 00:38 Source: Vital Signs reviewed, custodial records Exam Limitations: other - dementia - History of Present Illness Timing/Duration: other - fell out of bed Severity: mild Improving Factors: nothing Worsening Factors: nothing Associated Symptoms: headaches Allergies/Adverse Reactions: Allergies NO KNOWN ALLERGY Allergy (Verified 04/14/17 00:36) Home Medications: Ambulatory Orders Glipizide 10 mg PO BID 07/06/12 Pravastatin Sodium [Pravachol] 40 mg PO DAILY 07/06/12 Meloxicam 7.5 mg PO BEDTIME 08/23/13 Hydrochlorothiazide 25 mg PO DAILY 10/26/13 amLODIPine BESYLATE [Norvasc] 5 mg PO DAILY 10/26/13 Zolpidem Tartrate [Ambien] 5 mg PO BEDTIME 07/25/15 Nystatin (Topical) [Nystatin] 100,000 unit EX PRN 09/01/16 Aspirin [Aspirin Adult Low Dose] 81 mg PO DAILY 03/27/17 Metformin HCl [Metformin HCl ER] 1,000 mg PO BID 03/27/17 Cefuroxime Axetil [Ceftin] 500 mg PO Q12H #14 tablet 03/30/17 Lisinopril [Prinivil] 20 mg PO DAILY #30 tab 03/30/17 Tramadol HCl [Ultram] 50 mg PO BID PRN #30 tab 03/30/17 metFORMIN HCL [Glucophage] 500 mg PO BIDFD tab 03/30/17 Review of Systems - Review of Systems Constitutional: States: no symptoms reported EENTM: States: no symptoms reported Respiratory: States: no symptoms reported Cardiology: States: no symptoms reported Gastrointestinal/Abdominal: States: no symptoms reported Genitourinary: States: no symptoms reported Musculoskeletal: States: no symptoms reported Skin: States: no symptoms reported Neurological: States: headache Endocrine: States: no symptoms reported Hematologic/Lymphatic: States: no symptoms reported Unable to Obtain Due To: dementia Past Medical History (General) - Patient Medical History Hx Seizures: No Hx Stroke: No Hx Dementia: Yes Hx Asthma: No Hx of COPD: No Hx Cardiac Disorders: Yes - TIAs Hx Congestive Heart Failure: No Hx Pacemaker: No Hx Hypertension: Yes Hx Thyroid Disease: No Hx Diabetes: Yes Hx Gastroesophageal Reflux: No Hx Renal Disease: No Hx Cancer: No Hx of HIV: No Hx Hepatitis C: No Hx MRSA: No Surgical History: noncontributory - Vaccination History Hx Tetanus, Diphtheria Vaccination: No Hx Influenza Vaccination: Yes Hx Pneumococcal Vaccination: Yes - Social History Hx Tobacco Use: Yes Hx Chewing Tobacco Use: No Hx Alcohol Use: No Hx Substance Use: No Hx Substance Use Treatment: No Hx Depression: No Hx Physical Abuse: No Hx Emotional Abuse: No Hx Suspected Abuse: No - Activities of Daily Living Senior Living/Assisted Living (if applicable):: [facility] - Female History Patient : No Family Medical History - Family History Mother Family History: No Known Living Status: Brother Living Status: Still Living Hx Family Diabetes: Yes Sister Family History: Unknown Living Status: Still Living Hx Family Diabetes: Yes Physical Exam - Physical Exam General Appearance: Alert, Other - confused Eye Exam: bilateral normal Ears, Nose, Throat: hearing grossly normal Neck: non-tender, full range of motion Respiratory: lungs clear, normal breath sounds, no respiratory distress Cardiovascular/Chest: normal peripheral pulses, regular rate, rhythm, no edema Gastrointestinal/Abdominal: normal bowel sounds, non tender, soft Extremity: normal range of motion, normal inspection Neurologic: alert, disoriented x 3 Skin Exam: normal color, warm/dry Departure - Departure Clinical Impression: Normal appearance Fall Qualifiers: Encounter type: initial encounter Qualified Code(s): W19.XXXA - Unspecified fall, initial encounter Disposition: Discharge to Home or Self Care Condition: Good Departure Forms: ED Discharge - Pt. Copy, Patient Portal Self Enrollment Referrals: Mickie Smith NP [Primary Care Provider] - 1-2 Weeks Home Medications: Ambulatory Orders Glipizide 10 mg PO BID 07/06/12 Pravastatin Sodium [Pravachol] 40 mg PO DAILY 07/06/12 Meloxicam 7.5 mg PO BEDTIME 08/23/13 Hydrochlorothiazide 25 mg PO DAILY 10/26/13 amLODIPine BESYLATE [Norvasc] 5 mg PO DAILY 10/26/13 Zolpidem Tartrate [Ambien] 5 mg PO BEDTIME 07/25/15 Nystatin (Topical) [Nystatin] 100,000 unit EX PRN 09/01/16 Aspirin [Aspirin Adult Low Dose] 81 mg PO DAILY 02/02/18 Metformin HCl [Metformin HCl ER] 1,000 mg PO BID 03/27/17 Cefuroxime Axetil [Ceftin] 500 mg PO Q12H #14 tablet 03/30/17 Lisinopril [Prinivil] 20 mg PO DAILY #30 tab 03/30/17 Tramadol HCl [Ultram] 50 mg PO BID PRN #30 tab 03/30/17 metFORMIN HCL [Glucophage] 500 mg PO BIDFD tab 03/30/17
== END 2017-04-14 01:14 | disposition home or self-care (01) ==
LOC: ER 00:17
DX: Z04.3 Encounter for examination and observation following other accident (principal); I10 Essential (primary) hypertension; F03.90 Unspecified dementia, unspecified severity, without behavioral disturbance, psychotic disturbance, mood disturbance, and anxiety; Z86.73 Personal history of transient ischemic attack (TIA), and cerebral infarction without residual deficits; W06.XXXA Fall from bed, initial encounter; Y92.129 Unspecified place in nursing home as the place of occurrence of the external cause

== ENCOUNTER 2017-05-19 22:35 | Emergency (ER) | payer MEDICARE ==
--- NOTE | 2017-05-19 23:58 | CT ---
EXAM DATE: 05/19/2017 10:45 PM CDT. PROCEDURE: CT CERVICAL SPINE WITHOUT IV CONTRAST. INDICATION: fall with rigth forehead hematoma. COMPARISON: None. TECHNIQUE: Axial CT images of the cervical spine were obtained without administration of intravenous contrast. This exam was performed according to our departmental dose-optimization program which includes use of Automated Exposure Control, adjustment of the mA and/or kV according to patient size and/or use of iterative reconstruction technique. FINDINGS: Straightening of the normal cervical lordosis. The cervical vertebral bodies otherwise demonstrate normal height and alignment. Moderate intervertebral disc space height loss C5-C6 and C6-C7. No acute fracture. No high-grade spinal canal stenosis. Scattered uncovertebral spurring and facet arthropathy contributes to moderate left foraminal stenosis C3-C4, mild right foraminal narrowing C4-C5, moderate right and mild left foraminal stenosis C5-C6, and mild bilateral foraminal narrowing C6-C7. The soft tissues of the neck are unremarkable. The lung apices are clear. IMPRESSION: No acute fracture or traumatic subluxation of the cervical spine. Electronically signed by: Demond Ramires MD 05/19/2017 11:55 PM CDT
--- NOTE | 2017-05-20 00:01 | CT ---
EXAM DATE: 05/19/2017 10:45 PM CDT. PROCEDURE: CT HEAD WITHOUT IV CONTRAST. INDICATION: fall with rigth forehead hematoma. COMPARISON: 07/25/2015. TECHNIQUE: Axial CT images of the head were acquired without intravenous contrast. This exam was performed according to our departmental dose-optimization program which includes use of Automated Exposure Control, adjustment of the mA and/or kV according to patient size and/or use of iterative reconstruction technique. FINDINGS: No acute intracranial hemorrhage. Suarez white matter differentiation is preserved. No mass effect or midline shift. Scattered white matter hypoattenuation compatible with mild chronic microvascular angiopathy. Moderate generalized brain volume loss. Moderate size right periorbital hematoma. Unremarkable intraorbital contents. The paranasal sinuses are well aerated. Mastoid air cells are clear. Intact calvarium. IMPRESSION: No acute intracranial abnormality. Right periorbital hematoma. Chronic senescent changes. Electronically signed by: Demond Ramires MD 05/19/2017 11:59 PM CDT
--- NOTE | 2017-05-20 00:05 | ED.PDOC ---
History of Present Illness - General Chief Complaint: Head Injury Stated Complaint: fell and hit head Time Seen by Provider: 05/19/17 22:40 Source: patient, family - History of Present Illness Initial Comments: The patient is a 76-year-old female presenting to the emergency room after a fall at home. The patient already has a tendency for falls however the patient was just started on a new sleep medication tonight. She got up and was unsteady on her feet and fell. She has a right periorbital hematoma. Extraocular limits are intact. sight is at baseline. No altered mental status. No new neurological defects. No point pain along her cervical spine. No other obvious injuries. The patient is mildly drowsy. Timing/Duration: 1/2 hour Severity: moderate Improving Factors: nothing Worsening Factors: nothing Associated Symptoms: denies symptoms Allergies/Adverse Reactions: Allergies NO KNOWN ALLERGY Allergy (Verified 04/14/17 00:36) Home Medications: Ambulatory Orders Pravastatin Sodium [Pravachol] 40 mg PO DAILY 07/06/12 Meloxicam 7.5 mg PO BEDTIME 08/23/13 Hydrochlorothiazide 25 mg PO DAILY 10/26/13 amLODIPine BESYLATE [Norvasc] 5 mg PO DAILY 10/26/13 Aspirin [Aspirin Adult Low Dose] 81 mg PO DAILY 03/27/17 Metformin HCl [Metformin HCl ER] 1,000 mg PO BID 03/27/17 Lisinopril [Prinivil] 20 mg PO DAILY #30 tab 03/30/17 Fluconazole 100 mg PO 05/19/17 Temazepam 30 mg PO 05/19/17 Review of Systems - Review of Systems Constitutional: States: malaise EENTM: States: no symptoms reported Respiratory: States: no symptoms reported Cardiology: States: no symptoms reported Gastrointestinal/Abdominal: States: no symptoms reported Genitourinary: States: no symptoms reported Musculoskeletal: States: no symptoms reported Skin: States: see HPI Neurological: States: see HPI Endocrine: States: no symptoms reported All other Systems: No Change from Baseline Past Medical History (General) - Patient Medical History Hx Seizures: No Hx Stroke: No Hx Dementia: Yes Hx Asthma: No Hx of COPD: No Hx Cardiac Disorders: Yes - TIAs Hx Congestive Heart Failure: No Hx Pacemaker: No Hx Hypertension: Yes Hx Thyroid Disease: No Hx Diabetes: Yes Hx Gastroesophageal Reflux: No Hx Renal Disease: No Hx Cancer: No Hx of HIV: No Hx Hepatitis C: No Hx MRSA: No - Vaccination History Hx Tetanus, Diphtheria Vaccination: No Hx Influenza Vaccination: Yes Hx Pneumococcal Vaccination: Yes Immunizations Up to Date: Yes - Social History Hx Tobacco Use: Yes Hx Chewing Tobacco Use: No Hx Alcohol Use: No Hx Substance Use: No Hx Substance Use Treatment: No Hx Depression: No Hx Physical Abuse: No Hx Emotional Abuse: No Hx Suspected Abuse: No - Female History Patient : No - Triage Comment ED Triage Comment: family states took "new sleeping pill" and when getting up from bed, fell and hit forehead Family Medical History - Family History Mother Family History: No Known Living Status: Brother Living Status: Still Living Hx Family Diabetes: Yes Sister Family History: Unknown Living Status: Still Living Hx Family Diabetes: Yes Physical Exam - Physical Exam General Appearance: No apparent distress, Other - the patient is drowsy but interactive. Eye Exam: bilateral normal - right supraorbital hematoma. Ears, Nose, Throat: normal ENT inspection, normal pharynx Neck: full range of motion, other - mild diffuse discomfort to palpation over the cervical spine but no point tenderness or step-off. 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 Extraocular movements are preserved. Comments: Vital Signs - 8 hr 05/19/17 05/19/17 05/19/17 22:42 23:19 23:20 Temperature 98.1 F Pulse Rate [ 96 H 98 H 104 H Left] Respiratory 18 Rate Blood Pressure 154/87 168/68 152/81 [Left Arm] O2 Sat by Pulse 99 Oximetry Progress - Progress Progress: 05/20/17 00:07 the patient is 76-year-old female that got out of bed tonight after having taken a new sleeping medication and tripped and fell. She has a right periorbital hematoma. CT scan of the head and cervical spine showed no acute pathology otherwise. The patient may need to take a smaller dose of the sleep medication in the future. She needs to ambulate carefully to prevent further falls and complications related to falls. She needs to follow up with her primary care doctor in a day or 2. ER warnings are given for any worsening. - Results/Orders Results/Orders: Laboratory Tests 05/19/17 05/19/17 22:52 23:05 POC Glucose 186 H Urine Color Yellow Urine Appearance Clear Urine pH 7.0 Ur Specific [place] 1.015 Urine Protein Negative Urine Glucose (UA) Negative Urine Ketones Negative Urine Blood Trace-intact H Urine Nitrite Negative Urine Bilirubin Negative Urine Urobilinogen 0.2 Ur Leukocyte Esterase Negative Urine RBC 0-1 Urine WBC 0 Ur Epithelial Cells 0-1 Urine Bacteria 1+ - EKG/XRAY/CT CT Ordered: Yes Departure - Departure Clinical Impression: Periorbital hematoma of right eye Fall at home Qualifiers: Encounter type: initial encounter Qualified Code(s): W19.XXXA - Unspecified fall, initial encounter; Y92.099 - Unspecified place in other non-institutional residence as the place of occurrence of the external cause Disposition: Discharge to Home or Self Care Condition: Fair Departure Forms: ED Discharge - Pt. Copy, Patient Portal Self Enrollment Instructions: Head Injury (Alternative Therapy), DI for Trauma Diet: regular diet Activity: increase activity as tolerated Referrals: Mickie Smith NP [Primary Care Provider] - 1-2 Days Home Medications: Ambulatory Orders Pravastatin Sodium [Pravachol] 40 mg PO DAILY 07/06/12 Meloxicam 7.5 mg PO BEDTIME 08/23/13 Hydrochlorothiazide 25 mg PO DAILY 10/26/13 amLODIPine BESYLATE [Norvasc] 5 mg PO DAILY 10/26/13 Aspirin [Aspirin Adult Low Dose] 81 mg PO DAILY 03/27/17 Metformin HCl [Metformin HCl ER] 1,000 mg PO BID 03/27/17 Lisinopril [Prinivil] 20 mg PO DAILY #30 tab 03/30/17 Fluconazole 100 mg PO 05/19/17 Temazepam 30 mg PO 05/19/17 Additional Instructions: the patient is 76-year-old female that got out of bed tonight after having taken a new sleeping medication and tripped and fell. She has a right periorbital hematoma. CT scan of the head and cervical spine showed no acute pathology otherwise. The patient may need to take a smaller dose of the sleep medication in the future. She needs to ambulate carefully to prevent further falls and complications related to falls. She needs to follow up with her primary care doctor in a day or 2. ER warnings are given for any worsening.
[2017-05-20 00:27] VITALS: BP 142/77; TEMP 98.2; O2SAT 98
== END 2017-05-20 00:27 | disposition home or self-care (01) ==
LOC: ER 22:35
DX: S00.11XA Contusion of right eyelid and periocular area, initial encounter (principal); I10 Essential (primary) hypertension; E11.9 Type 2 diabetes mellitus without complications; Z86.73 Personal history of transient ischemic attack (TIA), and cerebral infarction without residual deficits; W19.XXXA Unspecified fall, initial encounter; Z91.81 History of falling; Y92.009 Unspecified place in unspecified non-institutional (private) residence as the place of occurrence of the external cause; Z79.82 Long term (current) use of aspirin; Z79.899 Other long term (current) drug therapy; Z87.891 Personal history of nicotine dependence

== ENCOUNTER → 2019-12-30 | Outpatient (CLI) | payer OTHER | LOC: SOLHO 16:14 | PROVIDERS: ATTEND Family Medicine | DX: N39.0 Urinary tract infection, site not specified (principal) ==